=== PATIENT | male | born 1985 | race African-American/Black ===

== ENCOUNTER 2019-01-18 21:28 | Emergency (ER) | payer SELFPAY ==
[~2019-01-18] VITALS: Ht 193 cm; Wt 88.5 kg
[2019-01-18 23:02] VITALS: BP 138/75
== END 2019-01-19 00:14 | disposition home or self-care (01) ==
LOC: ER 21:31
DX: L02.31 Cutaneous abscess of buttock (principal)
CPT/HCPCS: 10060; 99283; C1887